=== PATIENT | female | born 1955 | race African-American/Black ===

== ENCOUNTER 2017-03-29 09:47 | Day surgery (SDC) | payer OTHER, BC ==
[2017-03-27 17:49] VITALS: BMI 39.4
[2017-03-29] MEDS ORDERED: IBUPROFEN 800 MG/8 ML IJ IVPB PRN (11:39)
--- NOTE | 2017-03-29 11:39 | HP ---
History & Physical Update - History History: No Change - Physical Physical: No Change - Assessment Assessment: No Change - Plan Plan: No Change
[2017-03-29] MEDS ORDERED: ACETAMINOPHEN 1000 MG/100 ML VIAL (NON FORMULARY) IVPB ONE (11:40)
[2017-03-29] MEDS ORDERED: DEXTROSE 5%-0.45% SALINE 1,000 ML IV SCH (11:45)
[2017-03-29] MEDS ORDERED: LIDOCAINE HCL 1%, 10 MG/ML (20ML VIAL) ONE (11:53)
[2017-03-29] MEDS ORDERED: MIDAZOLAM HCL 2 MG/2 ML SINGLE DOSE VIAL ONE (12:00)
[2017-03-29] MEDS ORDERED: ceFAZolin SODIUM 1 GM VIAL IVPB ONE (12:08)
[2017-03-29] MEDS ORDERED: ceFAZolin SODIUM 1 GM VIAL ONE (12:14)
[2017-03-29] MEDS ORDERED: DEXAMETHASONE SOD PHOSPHATE 4 MG/1 ML VIAL ONE (12:29)
[2017-03-29] MEDS ORDERED: LIDOCAINE HCL 1%, 10 MG/ML (20ML VIAL) INF ONE (12:44)
[2017-03-29] MEDS ORDERED: ONDANSETRON 4 MG/2 ML VIAL IVPUSH PRN (12:51)
[2017-03-29] MEDS ORDERED: oxyCODONE HCL 5 MG TABLET PO PRN (12:51)
[2017-03-29] MEDS ORDERED: LACTATED RINGERS SOLUTION 1,000 ML IV SCH (13:00)
[2017-03-29] MEDS ORDERED: ACETAMINOPHEN INJECTION 100 ML IVPB ONE (13:36)
[2017-03-29 15:21] VITALS: BP 129/77; PULSE 59; TEMP 97.7
--- NOTE | 2017-03-30 12:40 | PATH ---
Surgical Pathology Report Patient Name: ELLIOTT LITTLEJOHN Med. Rec. #: [id number] /Age/Gender: 1955 (Age: 62) / F Account: [id number] Location: [facility] SURGICAL Taken: 03/29/2017 Received: 03/29/2017 Reported: 03/30/2017 Physicians: Dennis Pete M.D. Specimen(s) Received INTERSTIM BATTERY (EXPLANT) Clinical History Urinary incontinence Final Diagnosis DATABASE DEVELOPER, REMOVAL: DATABASE DEVELOPER CONSISTENT WITH INTERSTIM BATTERY (GROSS ONLY). Electronically Signed Pac[place]ir M.D. Gross Description Received fresh labeled "InterStim battery," is a 4.8 x 4.2 x 0.7 cm santos metallic device, consistent with a battery. The battery has the following inscription: "[employer] InterStim II SN: [id number]." No soft tissue is present. No sections are submitted, gross only. /03/29/2017 saudi03/29/2017
--- NOTE | 2017-05-11 15:08 | OP ---
DATE OF OPERATION: 03/29/2017 SURGEON: Dennis Pete MD PREOPERATIVE DIAGNOSIS: Urge urinary incontinence. POSTOPERATIVE DIAGNOSIS: Urge urinary incontinence. PROCEDURE: InterStim lead implant removal, InterStim lead implant replacement. ANESTHESIA: IV sedation with local. ESTIMATED BLOOD LOSS: Minimal. PREOPERATIVE INDICATIONS: The patient has urge urinary incontinence which has previously responded to InterStim placement. She has end of service on her battery. She comes for lead and battery replacement. DESCRIPTION OF PROCEDURE: The patient was brought to the OR, placed on the table in prone position. All pressure points were protected. Patient given IV sedation and IV antibiotics. The back was prepped and draped sterilely. Timeout was performed. Lidocaine was injected into the skin over the S3 foramen as located on fluoroscopy. Spinal needles were placed down the S3 foramina bilaterally. Good anal jaylan and toe deflection were noted at low amplitude. Using Seldinger technique, the tract was dilated and quadripole lead was placed in its proper orientation as seen on fluoroscopy, with all 4 leads giving good response at low amplitude. The lead was then tunneled beneath the skin to pocket. The original battery was removed and the original lead was also removed in total. A new battery was connected to the new lead, placed in the pocket. Impedances were checked and noted to be normal. Old lead and battery were sent off for histopathological confirmation. Wounds were closed in 2 layers and dressed. Patient was woken up. DENNIS PETE M.D. [id number]
== END 2017-03-29 15:37 | disposition home or self-care (01) ==
LOC: JASU-SURG 09:47
PROVIDERS: ATTEND Urology
PROC: 0JH70BZ Insertion of Single Array Stimulator Generator into Back Subcutaneous Tissue and Fascia, Open Approach (ICD-10-PCS; 2017-03-29)
PROC: 01PY0MZ Removal of Neurostimulator Lead from Peripheral Nerve, Open Approach (ICD-10-PCS; 2017-03-29)
PROC: 01HY0MZ Insertion of Neurostimulator Lead into Peripheral Nerve, Open Approach (ICD-10-PCS; 2017-03-29)
PROC: 4B00XVZ Measurement of Central Nervous Stimulator, External Approach (ICD-10-PCS; 2017-03-29)
PROC: 0JPT0MZ Removal of Stimulator Generator from Trunk Subcutaneous Tissue and Fascia, Open Approach (ICD-10-PCS; principal; 2017-03-29 11:00)
DX: T85.113A Breakdown (mechanical) of implanted electronic neurostimulator, generator, initial encounter (principal); N39.41 Urge incontinence
CPT/HCPCS: 64581; 64590; C1767; C1778; 88300-TC; 94760

== ENCOUNTER 2020-10-23 04:23 | Day surgery (SDC) | payer OTHER, BC ==
[2020-10-21 19:08] VITALS: BMI 36.7
[2020-10-23] MEDS ORDERED: LIDOCAINE HCL 1%, 10 MG/ML (20ML VIAL) ONE (14:00)
[2020-10-23] MEDS ORDERED: ONDANSETRON 4 MG/2 ML VIAL IVPB PRN (14:03)
[2020-10-23] MEDS ORDERED: PROMETHAZINE HCL 25 MG/1 ML VIAL IVPB PRN (14:03)
[2020-10-23] MEDS ORDERED: LACTATED RINGERS SOLUTION 1,000 ML IV SCH (14:15)
[2020-10-23] MEDS ORDERED: ACETAMINOPHEN 1000 MG/100 ML VIAL (NON FORMULARY) IVPB ONE (14:15)
[2020-10-23] MEDS ORDERED: MIDAZOLAM HCL 2 MG/2 ML SINGLE DOSE VIAL ONE ×2 (14:23)
[2020-10-23] MEDS ORDERED: ceFAZolin SODIUM 1 GM VIAL IVPB ONE (14:28)
[2020-10-23] MEDS ORDERED: DEXTROSE 5%-0.45% SALINE 1,000 ML IV SCH (14:30)
[2020-10-23] MEDS ORDERED: PROPOFOL 20 ML ONE (14:31)
[2020-10-23] MEDS ORDERED: LIDOCAINE HCL 1%, 10 MG/ML (20ML VIAL) NR ONE ×2 (14:32)
[2020-10-23] MEDS ORDERED: SUCCINYLCHOLINE CHLORIDE 200 MG/10 ML SYRINGE ONE (15:08)
[2020-10-23 15:38] VITALS: TEMP 97.2
[2020-10-23 16:50] VITALS: BP 147/84; PULSE 86
== END 2020-10-23 16:30 | disposition home or self-care (01) ==
LOC: JASU-SURG 04:23
PROVIDERS: ATTEND Urology
PROC: 0JPT0MZ Removal of Stimulator Generator from Trunk Subcutaneous Tissue and Fascia, Open Approach (ICD-10-PCS; 2020-10-23)
PROC: 01PY0MZ Removal of Neurostimulator Lead from Peripheral Nerve, Open Approach (ICD-10-PCS; principal; 2020-10-23 14:00)
DX: T85.199A Other mechanical complication of other implanted electronic stimulator of nervous system, initial encounter (principal); N39.41 Urge incontinence; I10 Essential (primary) hypertension; E11.9 Type 2 diabetes mellitus without complications; E66.01 Morbid (severe) obesity due to excess calories; G47.30 Sleep apnea, unspecified
CPT/HCPCS: 82962; 88300-TC